=== PATIENT | male | born 1975 | race Caucasian/White ===

== ENCOUNTER 2017-04-02 11:18 | Emergency (ER) | payer OTHER ==
[~2017-04-02] VITALS: Ht 175.3 cm; Wt 118.2 kg
[2017-04-02 11:25] VITALS: BP 156/111; PULSE 56; RESP 18; O2SAT 98
--- NOTE | 2017-04-02 11:40 | ED.REPORT ---
HPI-Chest Pain 40 and Over Date of Service Apr 02, 2017 ED Provider: Austyn Rubio MD The pt is a 42 y/o male w/ a hx of HTN and sleep apnea, IBS and a thyroid nodule presenting to the ED c/o chest pressure for the last two months. He also reports occasional sharp pains to the L side of his chest. The chest pain episodes happen at least twice a day and last from one second to a minute. The pt suspects the CP is related to anxiety. Denies a cough, fever, vomiting, or diarrhea. Nursing Notes Stated Complaint: [facility] Chief Complaint: Chest Pain Nursing Notes Reviewed: Yes Allergies: Coded Allergies: No Known Allergies (Unverified , 04/02/17) General Time Seen by MD: 11:39 Chief Complaint Chest pain Hx Obtained From: Patient Arrived By: Walk-in Sudden in Onset?: Yes Onset Occurred: More than a week ago... (2 months) Symptom Duration: Since onset Recent Healthcare: No recent hospitalization, Recent doctor visit Similar Sx Previous: Yes Past Medical History Past Medical History Sleep apnea Nodule on thyroid IBS Degenerative discs of neck and back Reports: Hypertension, Denies: Diabetes mellitus Past Surgical History R knee ACL Reports: Appendectomy Family History Mother has HTN Smoking History Never Smoker Social History Other Social History: Good social support Ambulatory Status Independent Review of Systems Constitutional: Denies: Fever Respiratory: Denies: Non-productive cough Cardiovascular: Reports: Chest pain GI: Denies: Diarrhea, Vomiting Complete sys rev & neg: except as marked. Physical Exam Initial Vital Signs Vital Signs (First) Date Time Temp Pulse Resp B/P Pulse Ox O2 Delivery O2 Flow Rate FiO2 04/02/17 11:25 36.2 56 18 156/111 98 Room Air Initial VS: Reviewed Head / Eyes: Atraumatic, Normocephalic, PERRL ENT: Mucous membranes moist, Conjunctiva normal, No scleral icterus Neck: Supple, Non-tender, Full range of motion Extremities: Vascular intact, Neuro intact, No swelling, No tenderness Skin: Warm, Dry, No cyanosis Neurologic: Alert, Oriented, Nonfocal Psychiatric: Mood/affect normal, Behavior normal, Normal thought content General/Constitutional: Awake, Alert Respiratory / Chest: Atraumatic, Breath sounds NL, Breath sounds = bilat Cardiovascular: Heart rate NL, Regular rhythm, Heart sounds NL Abdomen: Atraumatic, Soft, Non-tender Interpretation & Diagnostics Lab Results Interpretation Result Diagram: 04/02/17 1201 04/02/17 1201 Test 04/02/17 12:01 04/02/17 12:15 White Blood Count 7.0th/mm3 (3.8-10.1) Red Blood Count 5.06mil/mm3 (4.40-5.80) Hemoglobin 15.3g/dL (13.8-17.2) Hematocrit 43.9% (41.0-50.0) Mean Corpuscular Volume 86.8fL (81-100) Mean Corpuscular Hemoglobin 30.2pg (27.0-35.0) Mean Corpuscular Hemoglobin Concent 34.9% (32.0-37.0) Red Cell Distribution Width 14.0% (12.3-15.4) Platelet Count 193bil/L (150-400) Neutrophils (%) (Auto) 45.0% (40-74) Lymphocytes (%) (Auto) 43.1% (14-46) Monocytes (%) (Auto) 8.6% (4-12) Eosinophils (%) (Auto) 2.3% (0-5) Basophils (%) (Auto) 0.7% (0-3) Prothrombin Time 9.8sec (8.1-12.5) Prothromb Time International Ratio 0.92ratio Sodium Level 139mEq/L (134-144) Potassium Level 4.1mEq/L (3.5-5.2) Chloride Level 102mEq/L (97-108) Carbon Dioxide Level 25mmol/L (18-29) Blood Urea Nitrogen 10mg/dL (6-24) Creatinine 0.74mg/dL (0.76-1.27) Estimat Glomerular Filtration Rate 123mL/min (>59) Glucose Level 96mg/dL (60-99) Calcium Level 9.1mg/dL (8.5-10.1) Magnesium Level 2.0mg/dL (1.6-2.6) Total Bilirubin 0.4mg/dL (0.0-1.2) Aspartate Amino Transf (AST/SGOT) 20U/L (0-50) Alanine Aminotransferase (ALT/SGPT) 31U/L (0-44) Alkaline Phosphatase 64U/L (25-150) Troponin T 0.010ug/L (0.0-0.011) Pro-B-Type Natriuretic Peptide < 5.00pg/mL (0-86) Total Protein 7.2g/dL (6.4-8.4) Albumin 4.2g/dL (3.4-5.0) Hold Riley Top Tube Received (Received) Hold Urine Received (Received) ECG Interpretation ECG Interpretation: Rate 61 NSR Time: 11:34 Interpreted by: ED physician X-Ray Chest Interpretation Chest Xray Interpretation: IMPRESSION: No acute cardiopulmonary disease process. Dictated by: Lorena Gallo MD, PhD on 04/02/2017 at 11:08 Approved by: Lorena Gallo MD, PhD on 04/02/2017 at 11:08 View: Portable, 1 view Interpretation / Wet Read by: Interpret - Radiologist Re-Eval/Medical Decision Source of Hx: Old records Counseled Regarding: Diagnosis, Lab results, Need for follow-up, When/why to return to ED Discharge & Departure Primary Impression: Non-cardiac chest pain Disposition: Home Discharge Condition All VS Reviewed: Yes Condition: Stable Additional Instructions: Thank for you entrusting us with your care today. Your EKG, X-ray, and blood work were all normal. Follow up with your primary care provider for further testing of your heart. Please return to the emergency department if you experience any new or worsening symptoms. I hope you feel better soon. Referrals: Laury Young Scribe Attestation Portions of this note were transcribed by Ethan Schneider. I, Dr. Rubio personally performed the history, physical exam and medical decision-making; I reviewed and confirmed the accuracy of the information in the transcribed note. copies to: Laury Young Kirk H MD Apr 02, 2017 11:39 Ethan Schneider Apr 02, 2017 12:14
--- NOTE | 2017-04-02 12:09 | DRSVH ---
PROCEDURE: X-RAY CHEST ONE VIEW, PORTABLE ([id number]) INDICATIONS: sob TECHNIQUE: One view of the chest was acquired. COMPARISON: None. FINDINGS: Surgical changes and devices: None. Lungs and pleura: No pleural effusions or pneumothorax. Lungs are clear. Mediastinum: Mediastinal contours appear normal. Heart size is normal. Bones and chest wall: No suspicious bony lesions. Overlying soft tissues appear unremarkable. IMPRESSION: No acute cardiopulmonary disease process. Dictated by: Lorena Gallo MD, PhD on 04/02/2017 at 11:08 Approved by: Lorena Gallo MD, PhD on 04/02/2017 at 11:08
[2017-04-02 12:12] VITALS: BP 144/93; PULSE 64; RESP 17; O2SAT 99
[2017-04-02 12:13] LABS: BASOPHILS % (AUTO) 0.7 % (0-3); EOSINOPHILS % (AUTO) 2.3 % (0-5); MONOCYTES % (AUTO) 8.6 % (4-12); Mean Corpuscular Hemoglobin 30.2 pg (27.0-35.0); Mean Corpuscular Volume 86.8 fL (81-100); Platelet Count 193 bil/L (150-400)
[2017-04-02 12:40] LABS: INR 0.92 ratio
[2017-04-02 14:20] VITALS: BP 153/99; PULSE 70; RESP 16; O2SAT 100
== END 2017-04-02 14:19 | disposition home or self-care (01) ==
LOC: SED 11:18
DX: R07.89 Other chest pain (principal); I10 Essential (primary) hypertension; Z90.89 Acquired absence of other organs; Z98.890 Other specified postprocedural states